=== PATIENT | female | born 1975 | race Two or more races ===

== ENCOUNTER 2021-11-23 09:37 | Outpatient (CLI) | payer OTHER | END 2021-11-23 09:59 | disposition home or self-care (01) | LOC: RAD 09:37 | PROVIDERS: ATTEND Specialist | DX: R19.00 Intra-abdominal and pelvic swelling, mass and lump, unspecified site (principal); N60.11 Diffuse cystic mastopathy of right breast; N60.12 Diffuse cystic mastopathy of left breast | CPT/HCPCS: 72197 ==

== ENCOUNTER → 2021-11-23 11:45 | Outpatient (CLI) | payer OTHER | END | disposition home or self-care (01) | LOC: LAB 11:45 | PROVIDERS: ATTEND Specialist | DX: Z12.11 Encounter for screening for malignant neoplasm of colon (principal); D64.9 Anemia, unspecified; E03.8 Other specified hypothyroidism; N95.1 Menopausal and female climacteric states; I10 Essential (primary) hypertension; C51.9 Malignant neoplasm of vulva, unspecified; N30.00 Acute cystitis without hematuria; E83.51 Hypocalcemia; A64 Unspecified sexually transmitted disease; N39.0 Urinary tract infection, site not specified; R97.8 Other abnormal tumor markers; R79.89 Other specified abnormal findings of blood chemistry; E55.9 Vitamin D deficiency, unspecified; A60.9 Anogenital herpesviral infection, unspecified ==

== ENCOUNTER 2023-08-01 11:00 | Inpatient (IN) | payer OTHER ==
[~2023-08-01] VITALS: Ht 152.4 cm; Wt 72.6 kg
[2023-08-11 08:23] LABS: INR 1.14; PARTIAL THROMBOPLASTIN TIME 26.5 SECONDS (22.0-34.0); PROTHROMBIN TIME 11.9 SECONDS (9.0-11.5)
[2023-08-11 20:37] LABS: MEAN CORPUSCULAR HGB CONC 30.4 g/dl (32.0-36.0); PLATELET COUNT 291 K/uL (150-450); RED BLOOD COUNT 3.61 M/uL (4.00-6.00)
[2023-08-11 20:41] LABS: MEAN CELL VOLUME 66.4 fL (80.00-100.00); MEAN CORPUSCULAR HEMOGLOBIN 20.2 pg (27.00-32.0)
[2023-08-11 20:42] LABS: HEMOGLOBIN 7.3 g/dL (12.0-15.00)
[2023-08-12 14:52] LABS: HEMATOCRIT 34.6 % (36.0-45.00); MEAN CORPUSCULAR HGB CONC 32.2 g/dl (32.0-36.0); PLATELET COUNT 326 K/uL (150-450); RED BLOOD COUNT 4.99 M/uL (4.00-6.00); RED CELL DISTRIBUTION WIDTH 24.6 % (11.5-14.5)
[2023-08-12 14:58] LABS: HEMOGLOBIN 11.1 g/dL (12.0-15.00); MEAN CELL VOLUME 69.5 fL (80.00-100.00); MEAN CORPUSCULAR HEMOGLOBIN 22.2 pg (27.00-32.0)
[2023-08-13] MEDS ORDERED: GABAPENTIN300 MG PO (07:50)
[2023-08-13] MEDS ORDERED: AMOX1TAB5 PO (07:51)
[2023-08-13] MEDS ORDERED: IBUPROFEN800 MG PO (07:51)
== END 2023-08-13 10:15 | disposition home or self-care (01) | DRG 743 ==
LOC: O/R 08-11 05:34 → OB/GYN 08-11 11:00 → O/R 08-11 16:50 → OB/GYN 08-11 19:38
PROVIDERS: ADMIT Obstetrics & Gynecology Gynecology; ATTEND Obstetrics & Gynecology Gynecology
PROC: 0UT70ZZ Resection of Bilateral Fallopian Tubes, Open Approach (ICD-10-PCS; 2023-08-11)
PROC: 0USG0ZZ Reposition Vagina, Open Approach (ICD-10-PCS; 2023-08-11)
PROC: 0UT90ZZ Resection of Uterus, Open Approach (ICD-10-PCS; principal; 2023-08-11 12:30)
DX: D25.1 Intramural leiomyoma of uterus (principal); D25.2 Subserosal leiomyoma of uterus; D25.0 Submucous leiomyoma of uterus; N80.03 Adenomyosis of the uterus; N72 Inflammatory disease of cervix uteri; Z20.822 Contact with and (suspected) exposure to COVID-19